=== PATIENT | male | born 2000 | race Two or more races ===

== ENCOUNTER 2021-09-01 05:23 | Emergency (ER) | payer OTHER ==
[2021-09-01] MEDS ORDERED: Ondansetron 4 MG Tab.DIS PO ONE (06:10)
[2021-09-01 06:42] LABS: ESTIMATED GFR 110 mL/min (>60)
[2021-09-01] MEDS ORDERED: Amoxicillin/Clavulanate K 875-125 MG Tab PO ONE (08:12)
== END 2021-09-01 08:20 | disposition home or self-care (01) ==
LOC: FB.ED 05:23
DX: T67.5XXA Heat exhaustion, unspecified, initial encounter (principal); R79.82 Elevated C-reactive protein (CRP); D72.829 Elevated white blood cell count, unspecified; M62.82 Rhabdomyolysis; R82.71 Bacteriuria; Z20.822 Contact with and (suspected) exposure to COVID-19
CPT/HCPCS: 36415; 80053; 81001; 82550; 85025; 86140; 99000; 99283; 99284; A9270-GY; Q0162; U0002